=== PATIENT | male | born 1990 | race African-American/Black ===

== ENCOUNTER 2024-07-24 11:01 | Emergency (ER) | payer SELFPAY ==
[~2024-07-24] VITALS: Ht 167.6 cm; Wt 66.0 kg
[2024-07-24 11:17] VITALS: TEMP 98.3; O2SAT 98
[2024-07-24] MEDS: CYCLOBENZAPRINE 10MG TABLET PO SCH (14:12)
[2024-07-24] MEDS: ACETAMINOPHEN 500MG TABLET PO ONE (14:14)
[2024-07-24 14:42] VITALS: BP 134/100; PULSE 99; RESP 16
[2024-07-24] MEDS: KETOROLAC 30MG/ML VIAL IM ONE (14:42)
[2024-07-24] MEDS ORDERED: LIDO700A15 TP (15:07)
[2024-07-24] MEDS ORDERED: IBUP-2029 MT (15:07)
== END 2024-07-24 15:56 | disposition home or self-care (01) ==
LOC: ER 11:08
DX: G89.29 Other chronic pain (principal); M54.50 Low back pain, unspecified
CPT/HCPCS: 99283; 96372; J1885